=== PATIENT | male | born 1980 | race Caucasian/White ===

== ENCOUNTER 2017-07-11 07:13 | Observation (INO) | payer SELFPAY ==
[~2017-07-11] VITALS: Ht 177.8 cm; Wt 77.3 kg
[2017-07-11 07:21] VITALS: BP 122/86; PULSE 90; RESP 16; TEMP 98.5; O2SAT 100
--- NOTE | 2017-07-11 07:58 | PD ---
HPI Chief Complaint: Skin Problem Time Seen by Provider: 07:36 Travel History International Travel<30 days: No Contact w/Intl Traveler<30days: No Traveled to known affect area: No History of Present Illness HPI 37-year-old male presents to the emergency department with complaint of pain and swelling to his left third knuckle that extends down the third finger and to the dorsal aspect and palmar aspect of his hand 2 days. He woke up yesterday with pain and minimal swelling and then woke up this morning with worsening. He says the cut in between 2 of his fingers a few days ago but did not think of anything of it. He did clean the cut after it occurred. He is up- to-date on his tetanus vaccination. Denies traumatic injury. Denies fevers. Reports one episode of vomiting yesterday. Says he has not been feeling well and has been unable to eat. Rates pain 7/10. Has been taking Tylenol without symptom relief. Pain is worse with movement. Better at rest. No primary care provider. Allergies to IV dye. History of asthma. Has no other medical complaints. No other modifying factors or associated signs and symptoms. [facility] Social History Tobacco Use: No Allergies-Medications (Allergen,Severity, Reaction): Coded Allergies: Iodinated Contrast- Oral and IV Dye (Verified Allergy, Unknown, 07/11/17) Reported Meds & Prescriptions Reported Meds & Active Scripts Active Augmentin (Amoxicillin-Clavulanate) 875-125 Mg Tab 1 Tab PO BID Bactrim DS (Sulfamethoxazole-Trimethoprim) 800-160 Mg Tab 1 Tab PO BID Review of Systems Except as stated in HPI: all other systems reviewed are Neg Physical Exam Narrative GENERAL: Well-nourished, well-developed male patient, in no acute distress SKIN: Warm and dry. HEAD: Atraumatic. Normocephalic. EYES: Pupils equal and round. No scleral icterus. No injection or drainage. ENT: Mucosa pink and moist. Airway patent. NECK: Trachea midline. CARDIOVASCULAR: Regular rate. RESPIRATORY: No accessory muscle use. GASTROINTESTINAL: Flat. MUSCULOSKELETAL: Left third MCP joint area, palmar aspect of hand, dorsal aspect of hand, and third finger with edema, erythema; mild lymphangitis noted to the back of the left hand; left third finger is with severe tenderness on passive extension and palpation along the tendon sheath; finger in flexed position; unable to actively flex or extend; no open wounds noted. Left upper extremity is supple and nontender with 2+ radial pulse and sensory intact. No obvious deformities. No clubbing. No cyanosis. No edema. NEUROLOGICAL: Awake and alert. Oriented 3. No obvious cranial nerve deficits. Motor grossly within normal limits. Normal speech. PSYCHIATRIC: Appropriate mood and affect; insight and judgment normal. Data Data Last Documented VS Vital Signs Date Time Temp Pulse Resp B/P (MAP) Pulse Ox O2 Delivery O2 Flow Rate FiO2 07/11/17 07:21 98.5 90 16 122/86 (98) 100 Orders Orders Hand, Complete ([id number]) (07/11/17 07:47) Oxycodone-Acetamin 5-325 Mg (Percocet (07/11/17 08:00) Basic Metabolic Panel (Bmp) (07/11/17 07:58) Complete Blood Count With Diff (07/11/17 07:58) Iv Access Insert/Monitor (07/11/17 07:58) Sodium Chlor 0.9% 1000 Ml Inj (Ns 1000 M (07/11/17 07:58) Sodium Chloride 0.9% Flush (Ns Flush) (07/11/17 08:00) Vancomycin Inj (Vancomycin Inj) (07/11/17 08:00) Morphine Inj (Morphine Inj) (07/11/17 08:00) Ondansetron Inj (Zofran Inj) (07/11/17 08:00) Prothrombin Time / Inr (Pt) (07/11/17 07:58) Act Partial Throm Time (Ptt) (07/11/17 07:58) Ceftriaxone Inj (Rocephin Inj) (07/11/17 08:15) Consult Hand Surgery (07/11/17 ) Vancomycin Inj (Vancomycin Inj) (07/11/17 09:45) Piperacil-Tazo 4.5 Gm Premix (Zosyn 4.5 (07/11/17 09:45) Admit Order (Ed Use Only) (07/11/17 10:20) Labs Laboratory Tests Test 07/11/17 08:14 White Blood Count 8.7 TH/MM3 Red Blood Count 4.68 MIL/MM3 Hemoglobin 13.9 GM/DL Hematocrit 41.2 % Mean Corpuscular Volume 87.9 FL Mean Corpuscular Hemoglobin 29.6 PG Mean Corpuscular Hemoglobin Concent 33.7 % Red Cell Distribution Width 13.7 % Platelet Count 194 TH/MM3 Mean Platelet Volume 9.0 FL Neutrophils (%) (Auto) 67.9 % Lymphocytes (%) (Auto) 24.6 % Monocytes (%) (Auto) 6.3 % Eosinophils (%) (Auto) 1.0 % Basophils (%) (Auto) 0.2 % Neutrophils # (Auto) 5.9 TH/MM3 Lymphocytes # (Auto) 2.1 TH/MM3 Monocytes # (Auto) 0.5 TH/MM3 Eosinophils # (Auto) 0.1 TH/MM3 Basophils # (Auto) 0.0 TH/MM3 CBC Comment DIFF FINAL Differential Comment Prothrombin Time 10.3 SEC Prothromb Time International Ratio 1.0 RATIO Activated Partial Thromboplast Time 28.2 SEC Blood Urea Nitrogen 13 MG/DL Creatinine 1.10 MG/DL Random Glucose 97 MG/DL Calcium Level 8.9 MG/DL Sodium Level 140 MEQ/L Potassium Level 3.4 MEQ/L Chloride Level 105 MEQ/L Carbon Dioxide Level 29.6 MEQ/L Anion Gap 5 MEQ/L Estimat Glomerular Filtration Rate 75 ML/MIN MDM Medical Decision Making Medical Screen Exam Complete: Yes Emergency Medical Condition: Yes Medical Record Reviewed: Yes Differential Diagnosis Tenosynovitis, wound infection, cellulitis, osteomyelitis, septic joint Narrative Course 37-year-old male with suspected tenosynovitis to the left hand third finger. Dr. aMrie evaluated the patient and agrees with my findings. Call placed to hand surgeon. CBC, BMP, coags, IV, IV fluids, morphine, Zofran, Rocephin 1 g ordered. 0916: I spoke with Dr. Bojorquez, hand surgeon, and states Dr. Last will be coming in to see the patient. Vancomycin and Zosyn ordered per hand surgeon request. 1020: I spoke with RIKKI Gardner and report was given for patient admission. Physician Communication Physician Communication Dr. Bojorquez, hand surgeon RIKKI Ji Diagnosis Primary Impression: Flexor tenosynovitis of finger Additional Impression: Cellulitis of hand, left Admitting Information Admitting Physician Requests: Admit Scripts Amoxicillin-Clavulanate (Augmentin) 875-125 Mg Tab 1 TAB PO BID for Infection, #20 TAB 0 Refills Prov: Ajay Hamilton MD 07/11/17 Sulfamethoxazole-Trimethoprim (Bactrim DS) 800-160 Mg Tab 1 TAB PO BID for Infection, #20 TAB 0 Refills Prov: Ajay Hamilton MD 07/11/17 Luzmaria Edmond Jul 11, 2017 07:58
[2017-07-11] MEDS ORDERED: oxyCODONE/ACETAMINOPHEN 5 MG/325 MG TAB PO ONE (08:00)
[2017-07-11] MEDS ORDERED: SODIUM CHLORIDE 0.9% FLUSH 10 ML FLUSH IV FLUSH PRN ×2 (08:00→10:30)
[2017-07-11] MEDS ORDERED: ONDANSETRON HCL 4 MG/2 ML VIAL IV PUSH ONE (08:00)
[2017-07-11] MEDS ORDERED: MORPHINE SULFATE 4 MG/ML INJ IV PUSH ONE (08:00)
[2017-07-11] MEDS ORDERED: VANCOMYCIN INJ 1,000 MG in SODIUM CHLOR 0.9% 250 ML INJ 250 ML IV ONE ×2 (08:00→09:45)
[2017-07-11] MEDS ORDERED: cefTRIAXone INJ 1,000 MG in SODIUM CHLORIDE 0.9% INJ 100 ML IV ONE (08:15)
[2017-07-11] MEDS: SODIUM CHLOR 0.9% 1000 ML INJ 1,000 ML IV SCH ×2 (08:20→10:00)
[2017-07-11 08:26] LABS: AUTOMATED NEUTROPHIL # 5.9 TH/MM3 (1.8-7.7); BASOPHIL % 0.2 % (0.0-2.0); EOSINOPHIL # 0.1 TH/MM3 (0-0.4); HEMATOCRIT 41.2 % (39.0-51.0); HEMOGLOBIN 13.9 GM/DL (13.0-17.0); LYMPH % 24.6 % (9.0-44.0); LYMPHOCYTE # 2.1 TH/MM3 (1.0-4.8); MEAN CELL VOLUME 87.9 FL (80.0-100.0); MEAN CORPUSCULAR HEMOGLOBIN 29.6 PG (27.0-34.0); MEAN CORPUSCULAR HGB CONC 33.7 % (32.0-36.0); MONO % 6.3 % (0.0-8.0); MONOCYTE # 0.5 TH/MM3 (0-0.9); NEUT % 67.9 % (16.0-70.0); PLATELET COUNT 194 TH/MM3 (150-450); RED BLOOD COUNT 4.68 MIL/MM3 (4.50-5.90); RED CELL DISTRIBUTION WIDTH 13.7 % (11.6-17.2); WHITE BLOOD COUNT 8.7 TH/MM3 (4.0-11.0)
[2017-07-11 08:42] LABS: PROTHROMBIN TIME - PATIENT 10.3 SEC (9.8-11.6)
[2017-07-11 08:46] LABS: BICARBONATE 29.6 MEQ/L (21.0-32.0); CALCIUM 8.9 MG/DL (8.5-10.1); CREATININE 1.1 MG/DL (0.60-1.30)
--- NOTE | 2017-07-11 09:09 | RADRPT ---
EXAM DATE/TIME: 07/11/2017 08:28 [place] COMPARISON: No previous studies available for comparison. INDICATIONS : Left hand pain and swelling after small laceration between 3rd and 4rth fingers 3 days ago. MEDICAL HISTORY : None. SURGICAL HISTORY : None. ENCOUNTER: Initial ACUITY: 3 days PAIN SCORE: 6/10 LOCATION: Left hand FINDINGS: Three view examination of the left hand demonstrates no soft tissue swelling, dislocation, or fractur e. The carpal bones appear intact. The interphalangeal and metacarpophalangeal joints are intact. Bony mineralization is normal. CONCLUSION: Unremarkable examination of the left hand. Soft tissue swelling between the third and fourth fingers without foreign body. Barrett Garner MD on July 11, 2017 at 9:06 Board Certified Radiologist. This report was verified electronically.
[2017-07-11] MEDS ORDERED: PIPERACIL-TAZO 4.5 GM PREMIX 100 ML IV ONE (09:45)
--- NOTE | 2017-07-11 09:46 | PD ---
Physical Exam Date Seen by Provider: Jul 11, 2017 Data Data Last Documented VS Vital Signs Date Time Temp Pulse Resp B/P (MAP) Pulse Ox O2 Delivery O2 Flow Rate FiO2 07/11/17 07:21 98.5 90 16 122/86 (98) 100 Orders Orders Hand, Complete ([id number]) (07/11/17 07:47) Oxycodone-Acetamin 5-325 Mg (Percocet (07/11/17 08:00) Basic Metabolic Panel (Bmp) (07/11/17 07:58) Complete Blood Count With Diff (07/11/17 07:58) Iv Access Insert/Monitor (07/11/17 07:58) Sodium Chlor 0.9% 1000 Ml Inj (Ns 1000 M (07/11/17 07:58) Sodium Chloride 0.9% Flush (Ns Flush) (07/11/17 08:00) Vancomycin Inj (Vancomycin Inj) (07/11/17 08:00) Morphine Inj (Morphine Inj) (07/11/17 08:00) Ondansetron Inj (Zofran Inj) (07/11/17 08:00) Prothrombin Time / Inr (Pt) (07/11/17 07:58) Act Partial Throm Time (Ptt) (07/11/17 07:58) Ceftriaxone Inj (Rocephin Inj) (07/11/17 08:15) Consult Hand Surgery (07/11/17 ) Vancomycin Inj (Vancomycin Inj) (07/11/17 09:45) Piperacil-Tazo 4.5 Gm Premix (Zosyn 4.5 (07/11/17 09:45) Labs Laboratory Tests Test 07/11/17 08:14 White Blood Count 8.7 TH/MM3 Red Blood Count 4.68 MIL/MM3 Hemoglobin 13.9 GM/DL Hematocrit 41.2 % Mean Corpuscular Volume 87.9 FL Mean Corpuscular Hemoglobin 29.6 PG Mean Corpuscular Hemoglobin Concent 33.7 % Red Cell Distribution Width 13.7 % Platelet Count 194 TH/MM3 Mean Platelet Volume 9.0 FL Neutrophils (%) (Auto) 67.9 % Lymphocytes (%) (Auto) 24.6 % Monocytes (%) (Auto) 6.3 % Eosinophils (%) (Auto) 1.0 % Basophils (%) (Auto) 0.2 % Neutrophils # (Auto) 5.9 TH/MM3 Lymphocytes # (Auto) 2.1 TH/MM3 Monocytes # (Auto) 0.5 TH/MM3 Eosinophils # (Auto) 0.1 TH/MM3 Basophils # (Auto) 0.0 TH/MM3 CBC Comment DIFF FINAL Differential Comment Prothrombin Time 10.3 SEC Prothromb Time International Ratio 1.0 RATIO Activated Partial Thromboplast Time 28.2 SEC Blood Urea Nitrogen 13 MG/DL Creatinine 1.10 MG/DL Random Glucose 97 MG/DL Calcium Level 8.9 MG/DL Sodium Level 140 MEQ/L Potassium Level 3.4 MEQ/L Chloride Level 105 MEQ/L Carbon Dioxide Level 29.6 MEQ/L Anion Gap 5 MEQ/L Estimat Glomerular Filtration Rate 75 ML/MIN MDM Medical Record Reviewed: Yes Supervised Visit with AHMET: Yes Narrative Course I, Dr. Marie, have reviewed the advance practice practitioner's documentation and am in agreement with Lisbet Edmond , met with the patient face to face, made the diagnosis, and the medical decision making was done by me. *My assessment and Findings: Flexor tenosynovitis Scripts No Active Prescriptions or Reported Meds Marta Marie DO Jul 11, 2017 09:46
[2017-07-11] MEDS ORDERED: SODIUM CHLOR 0.9% 1000 ML INJ 1,000 ML IV SCH (10:20)
[2017-07-11] MEDS ORDERED: MAGNESIUM HYDROXIDE SUSP 30 ML CUP PO PRN (10:30)
[2017-07-11] MEDS ORDERED: MORPHINE SULFATE 2 MG/ML SYRINGE IV PUSH PRN ×2 (10:30)
[2017-07-11] MEDS ORDERED: ACETAMINOPHEN 325 MG TAB PO PRN (10:30)
[2017-07-11] MEDS ORDERED: LACTULOSE SYRUP 20 GM/30 ML CUP PO PRN (10:30)
[2017-07-11] MEDS ORDERED: BISACODYL 10 MG SUPP RECTAL PRN (10:30)
[2017-07-11] MEDS ORDERED: SENNOSIDES 8.6 MG TAB PO PRN (10:30)
[2017-07-11] MEDS ORDERED: NALOXONE HCL 0.4 MG/ML AMP IV PUSH PRN (10:30)
[2017-07-11] MEDS ORDERED: ONDANSETRON HCL 4 MG/2 ML VIAL IVP PRN (10:30)
[2017-07-11] MEDS ORDERED: Vancomycin Consult Pharmacy 1 EA OTHER SCH (12:15)
--- NOTE | 2017-07-11 12:20 | HHI.HP ---
[facility] Service [facility] Primary Care Physician No Primary Care Physician Admission Diagnosis Left 3rd finger flexor tenosynovitis Diagnoses: (1) Flexor tenosynovitis of finger Chief Complaint: left 3rd finger pain Travel History International Travel<30 Days: No Contact w/Intl Traveler <30 Da: No Traveled to Known Affected Are: No History of Present Illness 37-year-old male with no significant past medical history presented to the ED for evaluation of pain and swelling of his left third finger 3-4 day duration. Patient states 4 days ago he accidentally cut himself with a pocket knife, and at the time had no swelling or bleeding and no pain associated with it. However 2 days ago he had noticed increased swelling and pain of the left third knuckle which extended down to the third finger as well as the dorsal aspect and palmar aspect of his hands. He denies any febrile episode but reported an episode of emesis yesterday. He rated the pain 8 out of 10 in intensity. He also states, at the time of the cuts clean its well. Patient stated he is up-to -date on his tetanus vaccination. Currently denies any chest pain, shortness of breath. Review of Systems Except as stated in HPI: all other systems reviewed are Neg Past Family Social History Past Medical History No significant PMHx Past Surgical History No previous surgery Reported Medications No Active Prescriptions or Reported Medications Allergies: Coded Allergies: Iodinated Contrast- Oral and IV Dye (Verified Allergy, Unknown, 07/11/17) Family History Strong family h/o Diabetes Social History Smokes 1 pack Q3rd, occasional use of marijuana and cocaine. 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 SKIN: No rashes, ecchymoses or lesions. Cool and dry. HEAD: Atraumatic. Normocephalic. No temporal or scalp tenderness. EYES: Pupils equal round and reactive. Extraocular motions intact. No scleral icterus. No injection or drainage. ENT: Nose without bleeding, purulent drainage or septal hematoma. Throat without erythema, tonsillar hypertrophy or exudate. Uvula midline. Airway patent. NECK: Trachea midline. No JVD or lymphadenopathy. Supple, nontender, no meningeal signs. CARDIOVASCULAR: Regular rate and rhythm without murmurs, gallops, or rubs. RESPIRATORY: Clear to auscultation. Breath sounds equal bilaterally. No wheezes , rales, or rhonchi. GASTROINTESTINAL: Abdomen soft, non-tender, nondistended. No hepato-splenomegaly , or palpable masses. No guarding. MUSCULOSKELETAL: Left third MCP joint area, palmar aspect of hand, dorsal aspect of hand, and third finger with edema, erythema; mild lymphangitis noted to the back of the left hand; left third finger is with severe tenderness on passive extension and palpation along the tendon sheath; finger in flexed position; unable to actively flex or extend; no open wounds noted. NEUROLOGICAL: Awake and alert. Cranial nerves II through XII intact. Motor and sensory grossly within normal limits. Five out of 5 muscle strength in all muscle groups. Normal speech. Laboratory Laboratory Tests Test 07/11/17 08:14 White Blood Count 8.7 Red Blood Count 4.68 Hemoglobin 13.9 Hematocrit 41.2 Mean Corpuscular Volume 87.9 Mean Corpuscular Hemoglobin 29.6 Mean Corpuscular Hemoglobin Concent 33.7 Red Cell Distribution Width 13.7 Platelet Count 194 Mean Platelet Volume 9.0 Neutrophils (%) (Auto) 67.9 Lymphocytes (%) (Auto) 24.6 Monocytes (%) (Auto) 6.3 Eosinophils (%) (Auto) 1.0 Basophils (%) (Auto) 0.2 Neutrophils # (Auto) 5.9 Lymphocytes # (Auto) 2.1 Monocytes # (Auto) 0.5 Eosinophils # (Auto) 0.1 Basophils # (Auto) 0.0 CBC Comment DIFF FINAL Differential Comment Prothrombin Time 10.3 Prothromb Time International Ratio 1.0 Activated Partial Thromboplast Time 28.2 Blood Urea Nitrogen 13 Creatinine 1.10 Random Glucose 97 Calcium Level 8.9 Sodium Level 140 Potassium Level 3.4 Chloride Level 105 Carbon Dioxide Level 29.6 Anion Gap 5 Estimat Glomerular Filtration Rate 75 Result Diagram: 07/11/17 0814 07/11/17 0814 Imaging Last Impressions Hand X-Ray 07/11/17 0747 Signed Impressions: Service Date/Time: Tuesday, July 11, 2017 08:28 - CONCLUSION: Unremarkable examination of the left hand. Soft tissue swelling between the third and fourth fingers without foreign body. Barrett Garner MD Septic Shock Reassessment Septic shock perfusion: reassessment completed Caprini VTE Risk Assessment Caprini VTE Risk Assessment: No/Low Risk (score <= 1) Caprini Risk Assessment Model Point Value = 1 Point Value = 2 Point Value = 3 Point Value = 5 Age 41-60 Minor surgery BMI > 25 kg/m2 Swollen legs Varicose veins or History of unexplained or recurrent spontaneous Oral contraceptives or hormone replacement Sepsis (< 1 month) Serious lung disease, including pneumonia (< 1 month) Abnormal pulmonary function Acute myocardial infarction Congestive heart failure (< 1 month) History of inflammatory bowel disease Medical patient at bed rest Age 61-74 Arthroscopic surgery Major open surgery (> 45 min) Laparoscopic surgery (> 45 min) Malignancy Confined to bed (> 72 hours) Immobilizing plaster cast Central venous access Age >= 75 History of VTE Family history of VTE Factor V Leiden Prothrombin [id number] Lupus anticoagulant Anticardiolipin antibodies Elevated serum homocysteine Heparin-induced thrombocytopenia Other congenital or acquired thrombophilia Stroke (< 1 month) Elective arthroplasty Hip, pelvis, or leg fracture Acute spinal cord injury (< 1 month) Prophylaxis Regimen Total Risk Factor Score Risk Level Prophylaxis Regimen 0-1 Low Early ambulation 2 Moderate Order ONE of the following: *Sequential Compression Device (SCD) *Heparin 5000 units SQ BID 3-4 Higher Order ONE of the following medications: *Heparin 5000 units SQ TID *Enoxaparin/Lovenox 40 mg SQ daily (WT < 150 kg, CrCl > 30 mL/min) *Enoxaparin/Lovenox 30 mg SQ daily (WT < 150 kg, CrCl > 10-29 mL/min) *Enoxaparin/Lovenox 30 mg SQ BID (WT < 150 kg, CrCl > 30 mL/min) AND/OR *Sequential Compression Device (SCD) 5 or more Highest Order ONE of the following medications: *Heparin 5000 units SQ TID (Preferred with Epidurals) *Enoxaparin/Lovenox 40 mg SQ daily (WT < 150 kg, CrCl > 30 mL/min) *Enoxaparin/Lovenox 30 mg SQ daily (WT < 150 kg, CrCl > 10-29 mL/min) *Enoxaparin/Lovenox 30 mg SQ BID (WT < 150 kg, CrCl > 30 mL/min) AND *Sequential Compression Device (SCD) Assessment and Plan Problem List: (1) Flexor tenosynovitis of finger ICD Code: M65.9 - Synovitis and tenosynovitis, unspecified Assessment and Plan 37-year-old man with Flexor tenosynovitis of finger Hand x-ray noted and reviewed by me with finding of soft tissue swelling between the third and fourth left finger without any foreign body Hand surgery consultation pending Status post Rocephin, Zosyn and vancomycin IV 1 Continue Zosyn and vancomycin IV pending culture report Infectious disease consultation as needed DVT prophylaxis: Bilateral SCDs Code Status Full code Discussed Condition With Patient, ED Ajay Stewart MD Jul 11, 2017 12:20
[2017-07-11 14:00] VITALS: BP 133/80; PULSE 73; RESP 13; TEMP 97.9; O2SAT 99
--- NOTE | 2017-07-11 16:55 | PD.CONS ---
History of Present Illness Service Hand surgery Consult Requested By Emergency department Reason for Consult Left middle finger pain Primary Care Physician No Primary Care Physician Diagnoses: (1) Cellulitis of hand, left History of Present Illness 37M presented to the emergency department for pain and swelling of his left middle finger 24 hours. Patient reports that 4 days ago he actually cut himself with a pocket knife. Denies fever. Patient reports pain is moderate to severe and worse with palpation of the middle finger. Patient reports he is up-to-date on his tetanus. Review of Systems Except as stated in HPI: all other systems reviewed are Neg Past Family Social History Past Medical History No significant PMHx Past Surgical History No previous surgery Reported Medications No Active Prescriptions or Reported Medications Allergies: Coded Allergies: Iodinated Contrast- Oral and IV Dye (Verified Allergy, Unknown, 07/11/17) Family History Strong family h/o Diabetes Social History Smokes 3 packs per week, occasional use of marijuana and cocaine. 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 [place] Past Family Social History Allergies: Coded Allergies: Iodinated Contrast- Oral and IV Dye (Verified Allergy, Unknown, 07/11/17) Physical Exam Vital Signs Vital Signs Date Time Temp Pulse Resp B/P (MAP) Pulse Ox O2 Delivery O2 Flow Rate FiO2 07/11/17 14:00 97.9 73 13 133/80 (97) 99 07/11/17 07:21 98.5 90 16 122/86 (98) 100 Physical Exam No apparent anxiety alert and oriented 3 moist mucous membranes PERRLA skin without rash respirations nonlabored moves all 4 extremities to command digits warm well perfused Left middle finger with mild edema limited to the volar pad over the proximal phalanx Mild erythema over the volar middle finger proximal phalanx as well as dorsally over the second through fourth metacarpal heads Sensation intact light touch distally Moderate pain over the flexor tendon sheath of the middle finger only Patient able to get within 20 of full middle finger extension No lymphatic streaking No tenderness proximal to the metacarpal head Laboratory Laboratory Tests Test 07/11/17 08:14 White Blood Count 8.7 Red Blood Count 4.68 Hemoglobin 13.9 Hematocrit 41.2 Mean Corpuscular Volume 87.9 Mean Corpuscular Hemoglobin 29.6 Mean Corpuscular Hemoglobin Concent 33.7 Red Cell Distribution Width 13.7 Platelet Count 194 Mean Platelet Volume 9.0 Neutrophils (%) (Auto) 67.9 Lymphocytes (%) (Auto) 24.6 Monocytes (%) (Auto) 6.3 Eosinophils (%) (Auto) 1.0 Basophils (%) (Auto) 0.2 Neutrophils # (Auto) 5.9 Lymphocytes # (Auto) 2.1 Monocytes # (Auto) 0.5 Eosinophils # (Auto) 0.1 Basophils # (Auto) 0.0 CBC Comment DIFF FINAL Differential Comment Prothrombin Time 10.3 Prothromb Time International Ratio 1.0 Activated Partial Thromboplast Time 28.2 Blood Urea Nitrogen 13 Creatinine 1.10 Random Glucose 97 Calcium Level 8.9 Sodium Level 140 Potassium Level 3.4 Chloride Level 105 Carbon Dioxide Level 29.6 Anion Gap 5 Estimat Glomerular Filtration Rate 75 Result Diagram: 07/11/17 0814 07/11/17 0814 Assessment and Plan Problem List: (1) Cellulitis of hand, left ICD Codes: L03.114 - Cellulitis of left upper limb Assessment and Plan Delayed entry from 9:10 AM this morning 37-year-old male with 24 hour history of worsening left middle finger pain Discussed with patient that he has moderate cellulitis of the area but that there is concern for flexor tenosynovitis Given that this appears to be very early presentation as there is minimal edema and erythema, will follow the patient with serial exams during the course of the day Vancomycin/Zosyn Keep patient n.p.o. for now Since seeing the patient at 9:10 AM this morning, he was also examined at 12:30 PM Patient is only slightly worse with regards to his finger pain, though his hand pain is improved Will evaluate the patient before the end of day and determine if he may eat Prince Jessica MD Jul 11, 2017 16:55
[2017-07-11] MEDS ORDERED: PIPERACIL-TAZO 4.5 GM PREMIX 100 ML IV SCH (17:00)
[2017-07-11] MEDS ORDERED: BACT800T5 PO (17:56)
[2017-07-11] MEDS ORDERED: VANCOMYCIN INJ 1,500 MG in SODIUM CHLORID 0.9% 500 ML INJ 500 ML IV SCH (18:00)
[2017-07-11] MEDS ORDERED: AUGM875T3 PO (18:02)
--- NOTE | 2017-07-11 18:02 | HHI.PR ---
Addendum to Inpatient Note Addendum Reason: Additional Documentation Additional Information Patient Jaguar Agustin has decided to leave the hospital against medical advice. This patient has the capacity to refuse care and understands the risks of leaving, including permanent disability and/or , and has had an opportunity to ask questions about his condition. The patient has been informed that he may return for care at any time, and follow up has been arranged/ advised. Ajay Hamilton MD Jul 11, 2017 18:02
[2017-07-11] MEDS ORDERED: LACTOBACILLUS ACIDOPHILUS TAB PO SCH (21:00)
[2017-07-11] MEDS ORDERED: SODIUM CHLORIDE 0.9% FLUSH 10 ML FLUSH IV FLUSH SCH (21:00)
[2017-07-11] MEDS ORDERED: DOCUSATE SODIUM 50 MG/SENNA 8.6 MG TAB PO SCH (21:00)
[2017-07-11] MEDS ORDERED: VANCOMYCIN INJ 1,000 MG in SODIUM CHLOR 0.9% 250 ML INJ 250 ML IV SCH (21:00)
[2017-07-13] MEDS ORDERED: PHARMACY ORDERED LAB ONE (05:45)
== END 2017-07-11 18:25 | disposition left against medical advice (07) ==
LOC: NEPD 07:13 → INTOOBSV 10:21 → NEDA 10:21 → N06A 14:12
PROVIDERS: ADMIT Hospitalist; ATTEND Hospitalist
DX: S61.213A Laceration without foreign body of left middle finger without damage to nail, initial encounter (principal); M65.9 Synovitis and tenosynovitis, unspecified; L03.114 Cellulitis of left upper limb; W26.0XXA Contact with knife, initial encounter; J45.909 Unspecified asthma, uncomplicated; F17.210 Nicotine dependence, cigarettes, uncomplicated; Z91.041 Radiographic dye allergy status; Z01.818 Encounter for other preprocedural examination
CPT/HCPCS: 73130; 80048; 85025; 85610; 85730; 96365; 96366; 96375; 96376; 99285; G0378; J0696; J2270; J2405; J2543; J3370; J7030; J7050